=== PATIENT | male | born 1995 | race Caucasian/White ===

== ENCOUNTER 2017-11-16 13:21 | Emergency (ER) | payer OTHER ==
[~2017-11-16] VITALS: Ht 172.7 cm; Wt 99.0 kg
[2017-11-16 13:27] VITALS: BP 132/76
[2017-11-16] MEDS ORDERED: DIPH,PERTUSS(ACELL),TET VAC/PF 0.5 ML IM-VACC ONE ×2 (13:50→14:00)
[2017-11-16] MEDS ORDERED: LIDOCAINE-MPF 2% ,5ML ONE (13:50)
[2017-11-16] MEDS ORDERED: L.E.T SOLUTION TP ONE ×2 (13:52→14:00)
[2017-11-16] MEDS ORDERED: LIDOCAINE 2%, 20ML SQ ONE (14:00)
[2017-11-16] MEDS ORDERED: BACITRACIN ZINC OINT 500U/GM, 0.9 GM ONE (14:50)
== END 2017-11-16 14:59 | disposition home or self-care (01) ==
LOC: ED 14:53
DX: S61.411A Laceration without foreign body of right hand, initial encounter (principal); W01.0XXA Fall on same level from slipping, tripping and stumbling without subsequent striking against object, initial encounter; Y93.89 Activity, other specified; Y99.8 Other external cause status; Y92.89 Other specified places as the place of occurrence of the external cause
CPT/HCPCS: 12002; 90471; 90715; 99283; J3490